=== PATIENT | female | born 1985 | race Caucasian/White ===

== ENCOUNTER 2022-11-03 23:03 | Outpatient (CLI) | payer SELFPAY | END 2022-11-03 23:59 | disposition critical access hospital (66) | LOC: EMS 23:03 | DX: R41.82 Altered mental status, unspecified (principal); R09.89 Other specified symptoms and signs involving the circulatory and respiratory systems; R45.6 Violent behavior; Z78.1 Physical restraint status | CPT/HCPCS: A0425; A0427 ==

== ENCOUNTER 2022-11-03 23:41 | Emergency (ER) | payer SELFPAY ==
--- NOTE | 2022-11-03 23:54 | ED Physician Documentation ---
History of Present Illness - Stated complaint Stated Complaint: AMS - Additonal information Additional information: Patient is 37-year-old female brought to the emergency department with chief complaint of altered mental status. Per EMS that she has been living with an elderly individual for the last 3 months. EMS was contacted when she was found minimally responsive by her landlady. EMS reported normal blood sugar. She received Narcan which did improve her mentation but she became somewhat agitated and was placed in restraints prior to arrival. She was found with a bottle of pills initially prescribed [facility] Mr. Xavi bautista. She is unable to tell me who this is. The bottle pills contain the following, five 3 mg tablets of ivermectin with expiration date 12/19/2021, 1 5-325 [place], five 300 mg gabapentin, as well as 2 capsules containing a white powder with no other identifier. She is altered at this time, orientated to person and place only. Denies substance abuse, intensive self-harm, pain or other acute issues but does state "I need to use the bathroom". Further history is limited by her altered mentation. Review of Systems Unable to obtain: AMS PD PAST MEDICAL HISTORY - Allergies Allergies/Adverse Reactions: Allergies Allergy/AdvReac Type Severity Reaction Status Date / Time morphine AdvReac Unknown Verified 11/04/22 01:19 PD ED PE NORMAL - Vitals Vital signs reviewed: Yes (WNL) - General General: Other (Patient alert and orientated to person and place only.) - HEENT HEENT: Atraumatic, PERRL, EOMI, Other (Conjunctival injections bilaterally) - Cardiac Cardiac: RRR - Respiratory Respiratory: No respiratory distress - Abdomen Abdomen: Normal bowel sounds, Non tender - Female Female : Deferred - Rectal Rectal: Deferred - Derm Derm: Normal color - Extremities Extremities: No deformity - Neuro Neuro: Alert and oriented X 3, 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 Relevant findings are: Sinus rhythm with rate 74 bpm. Left axis deviation. Normal MI, QRS intervals. Borderline QTc at 481. No ST segment elevations. Nonspecific ST and T wave abnormalities throughout. Significant motion artifact throughout.. - Labs Labs: Laboratory Tests 11/03/22 11/03/22 11/03/22 23:45 23:45 23:45 WBC 6.0 RBC 4.00 L Hgb 13.4 Hct 40.6 MCV 101.5 H MCH 33.5 H MCHC 33.0 RDW 12.8 Plt Count 247 MPV 8.8 Neut # (Auto) 2.5 Lymph # (Auto) 2.8 [place] # (Auto) 0.5 Eos # (Auto) 0.1 Baso # (Auto) 0.1 Absolute Nucleated RBC 0.00 Nucleated RBC % 0.0 PT INR Sodium 140 Potassium 3.4 L Chloride 97 L Carbon Dioxide 27 Anion Gap 16.0 H BUN 10 Creatinine 0.6 Estimated GFR (MDRD) 114 Glucose 99 Lactic Acid Calcium 8.9 Magnesium 2.2 Total Bilirubin 0.3 AST 54 H ALT 32 Alkaline Phosphatase 59 Total Creatine Kinase 205 Total Protein 8.2 Albumin 4.4 Globulin 3.8 Albumin/Globulin Ratio 1.2 Lipase 46 TSH 2.67 Urine Color Urine Clarity Urine pH Ur Specific [place] Urine Protein Urine Glucose (UA) Urine Ketones Urine Occult Blood Urine Nitrite Urine Bilirubin Urine Urobilinogen Ur Leukocyte Esterase Ur Microscopic Review Urine Culture Comments Urine HCG, Qual Salicylates < 6.0 Urine Opiates Screen Ur Oxycodone Screen Urine Methadone Screen Ur Propoxyphene Screen Acetaminophen < 10 L Ur Barbiturates Screen Ur Tricyclics Screen Ur Phencyclidine Scrn Ur Amphetamine Screen U Methamphetamines Scrn U Benzodiazepines Scrn Urine Cocaine Screen U Cannabinoids Screen Ethyl Alcohol 436.0 SARS-CoV-2 (PCR) 11/03/22 11/04/22 11/04/22 23:49 00:00 00:06 WBC RBC Hgb Hct MCV MCH MCHC RDW Plt Count MPV Neut # (Auto) Lymph # (Auto) [place] # (Auto) Eos # (Auto) Baso # (Auto) Absolute Nucleated RBC Nucleated RBC % PT 10.0 INR 0.9 Sodium Potassium Chloride Carbon Dioxide Anion Gap BUN Creatinine Estimated GFR (MDRD) Glucose Lactic Acid Calcium Magnesium Total Bilirubin AST ALT Alkaline Phosphatase Total Creatine Kinase Total Protein Albumin Globulin Albumin/Globulin Ratio Lipase TSH Urine Color YELLOW Urine Clarity CLEAR Urine pH 7.0 Ur Specific [place] <=1.005 Urine Protein NEGATIVE Urine Glucose (UA) NEGATIVE Urine Ketones NEGATIVE Urine Occult Blood NEGATIVE Urine Nitrite NEGATIVE Urine Bilirubin NEGATIVE Urine Urobilinogen 0.2 (NORMAL) Ur Leukocyte Esterase NEGATIVE Ur Microscopic Review NOT INDICATED Urine Culture Comments NOT INDICATED Urine HCG, Qual NEGATIVE Salicylates Urine Opiates Screen NEGATIVE Ur Oxycodone Screen NEGATIVE Urine Methadone Screen NEGATIVE Ur Propoxyphene Screen NEGATIVE Acetaminophen Ur Barbiturates Screen NEGATIVE Ur Tricyclics Screen NEGATIVE Ur Phencyclidine Scrn NEGATIVE Ur Amphetamine Screen NEGATIVE U Methamphetamines Scrn NEGATIVE U Benzodiazepines Scrn NEGATIVE Urine Cocaine Screen NEGATIVE U Cannabinoids Screen NEGATIVE Ethyl Alcohol SARS-CoV-2 (PCR) NOT DETECTED 11/04/22 00:06 WBC RBC Hgb Hct MCV MCH MCHC RDW Plt Count MPV Neut # (Auto) Lymph # (Auto) [place] # (Auto) Eos # (Auto) Baso # (Auto) Absolute Nucleated RBC Nucleated RBC % PT INR Sodium Potassium Chloride Carbon Dioxide Anion Gap BUN Creatinine Estimated GFR (MDRD) Glucose Lactic Acid 2.6 H Calcium Magnesium Total Bilirubin AST ALT Alkaline Phosphatase Total Creatine Kinase Total Protein Albumin Globulin Albumin/Globulin Ratio Lipase TSH Urine Color Urine Clarity Urine pH Ur Specific [place] Urine Protein Urine Glucose (UA) Urine Ketones Urine Occult Blood Urine Nitrite Urine Bilirubin Urine Urobilinogen Ur Leukocyte Esterase Ur Microscopic Review Urine Culture Comments Urine HCG, Qual Salicylates Urine Opiates Screen Ur Oxycodone Screen Urine Methadone Screen Ur Propoxyphene Screen Acetaminophen Ur Barbiturates Screen Ur Tricyclics Screen Ur Phencyclidine Scrn Ur Amphetamine Screen U Methamphetamines Scrn U Benzodiazepines Scrn Urine Cocaine Screen U Cannabinoids Screen Ethyl Alcohol SARS-CoV-2 (PCR) PD Medical Decision Making - ED course Complexity details: reviewed results, re-evaluated patient, considered differential ED course: Patient is 37-year-old female being brought into the emergency department via EMS with altered mentation. Patient demonstrates slurred speech, disorganized behavior on arrival to the emergency department most consistent with acute intoxication. Denied alcohol or illicit substance abuse. Was found with a pill bottle that did not have her name on it that was found to contain five 3 mg ivermectin, five 300 mg Gabapentin, 1 5-325 Garfield and 2 capsules containing an unidentified white powder. Patient's EKG is outlined above was negative for indications of acute cardiac ischemia or dysrhythmia. Labs were all generally within normal limits or nonactionable with the exception of a significantly elevated blood ethanol. She was given IV hydration in the emergency department and provided with a single dose of lorazepam for chemical calming. She was trialed out of restraints shortly after arrival to the emergency department. She did require repeated redirection by nursing staff. On reevaluation at approximately 0630 hrs. patient continued to demonstrate findings consistent with acute alcohol intoxication. She continued to deny the use of any alcohol or other illicit substance. At this time I will be signing her out to the oncoming physician, please see their documentation for further detail. Departure - Departure Disposition: 01 Home, Self Care Clinical Impression: Alcohol intoxication Qualifiers: Complication of substance-induced condition: with unspecified complication Qualified Code(s): F10.929 - Alcohol use, unspecified with intoxication, unspecified Condition: Stable Instructions: ED Alcohol Intoxication Comments: You were brought to the emergency department last night after having had too much alcohol. Drinking too much can be dangerous to yourself and potentially to others. Please consider reaching out to your primary care provider for help with your substance use. If at anytime you are having thoughts of hurting yourself or anyone else please call 911 or return to the emergency department. [facility] [address] Main The [facility] offers a monitored and safe setting for individuals withdrawing from alcohol and drugs, and counseling for individuals experiencing a mental health crisis. All services are provided in a 10-bed facility where intensive medical monitoring is required along with stabilization services. The goal of these services is to assess a clients mental health and substance use disorder related needs, and assist them in accessing the services they need to recover. Discharge Date/Time: 11/04/22 08:40
--- NOTE | 2022-11-03 23:59 | ED Physician Documentation ---
Restraint [id number] - Immediate Situation Face to Face Evaluation Date: 11/03/22 Face to Face Evaluation Time: 23:58 Restraint Classification: Violent, physical Restraint Type: Soft extremity - Patient's Reaction & Behaviors Safety: Non-compliant Verbal: Asking for information, Crying/Tearful Harm: Potential harm to self, Potential harm to others - Behavioral Condition Attitude: Indifferent Behavior: Withdrawn Orientation: Person, Place Mood: Labile, Anxious - Evaluation Review of Systems: Unable to perform comprehensive ROS secondary to altered mentation. Pertinent History/Illicit Drugs/Medications/Results: Patient denies use of illicit substances. Was found adjacent multiple prescription medications as well as to identified capsules containing white powder. Please see MDM for further information. - Plan Need to Continue or Terminate Violent or Chemical Restraint: Continued
[2022-11-04 00:01] LABS: BASOPHILS # (AUTO) 0.1 10^3/uL (0.0-0.1); BASOPHILS % (AUTO) 0.8 %; EOSINOPHILS # (AUTO) 0.1 10^3/uL (0.0-0.7); EOSINOPHILS % (AUTO) 2.2 %; HCT - HEMATOCRIT 40.6 % (37.0-47.0); HGB - HEMOGLOBIN 13.4 g/dL (12.0-16.0); LYMPHOCYTES # (AUTO) 2.8 10^3/uL (1.5-3.5); LYMPHOCYTES % (AUTO) 47.5 %; MEAN CORPUSCULAR HEMOGLOBIN 33.5 pg (27.0-31.0); MEAN CORPUSCULAR VOLUME 101.5 fL (81.0-99.0); MEAN PLATELET VOLUME 8.8 fL (7.9-10.8); MONOCYTES # (AUTO) 0.5 10^3/uL (0.0-1.0); NEUTROPHILS # (AUTO) 2.5 10^3/uL (1.5-6.6); NEUTROPHILS % (AUTO) 41.3 %; PLT - PLATELET COUNT 247 10^3/uL (130-450); RED CELL DISTRIBUTION WIDTH 12.8 % (12.0-15.0)
[2022-11-04 00:11] LABS: MUDS CUTOFF CONCENTRATIONS CUTOFF CONC BELOW:
[2022-11-04 00:17] LABS: ACETAMINOPHEN < 10 ug/mL (10-30); ALBUMIN 4.4 g/dL (3.2-5.5); ALBUMIN/GLOBULIN RATIO 1.2 (1.0-2.2); ALKALINE PHOSPHATASE 59 IU/L (42-121); ALT ALANINE AMINOTRANSFERASE 32 IU/L (10-60); AST ASPARTATE AMINOTRANSFERASE 54 IU/L (10-42); BILIRUBIN,TOTAL 0.3 mg/dL (0.2-1.0); BUN - BLOOD UREA NITROGEN 10 mg/dL (6-20); CALCIUM 8.9 mg/dL (8.5-10.3); CARBON DIOXIDE - CO2 27 mmol/L (21-32); CHLORIDE 97 mmol/L (101-111); CK- CREATINE KINASE 205 IU/L (22-269); CREATININE 0.6 mg/dL (0.4-1.0); GFR - MDRD 114 (>89); GLUCOSE 99 mg/dL (70-100); LIPASE 46 U/L (22-51); MAGNESIUM 2.2 mg/dL (1.7-2.8); POTASSIUM 3.4 mmol/L (3.5-5.0); SALICYLATE < 6.0 mg/dL; SODIUM 140 mmol/L (135-145); TOTAL PROTEIN 8.2 g/dL (6.7-8.2)
[2022-11-04 00:19] LABS: BILIRUBIN,URINE NEGATIVE (NEGATIVE); GLUCOSE, URINE (UA) NEGATIVE (NEGATIVE); KETONES,URINE (UA) NEGATIVE (NEGATIVE); LEUKOCYTE ESTERASE, URINE NEGATIVE (NEGATIVE); NITRITE,URINE NEGATIVE (NEGATIVE); OCCULT BLOOD,URINE NEGATIVE (NEGATIVE); PROTEIN,URINE NEGATIVE (NEGATIVE); UROBILINOGEN,URINE 0.2 (NORMAL) E.U./dL (NORMAL)
[2022-11-04 00:21] LABS: INR 0.9 (0.8-1.2)
[2022-11-04 00:21] LABS: CLARITY,URINE CLEAR (CLEAR); HCG UR QUAL NEGATIVE
[2022-11-04] MEDS ORDERED: LORazepam 2 MG/ML VIAL IVP STA (00:24)
[2022-11-04 00:30] LABS: AMPHETAMINE SCREEN,URINE NEGATIVE (NEGATIVE); BARBITURATE SCREEN,UR NEGATIVE (NEGATIVE); BENZODIAZEPINES SCREEN, URINE NEGATIVE (NEGATIVE); COCAINE SCREEN URINE NEGATIVE (NEGATIVE); METHADONE SCREEN, URINE NEGATIVE (NEGATIVE); METHAMPHETAMINES SCREEN, URINE NEGATIVE (NEGATIVE); OPIATE SCREEN, URINE NEGATIVE (NEGATIVE); OXYCODONE SCREEN, URINE NEGATIVE (NEGATIVE); PROPOXYPHENE SCREEN, URINE NEGATIVE (NEGATIVE); THC CANNABINOID SCREEN, URINE NEGATIVE (NEGATIVE); TRICYCLIC ANTIDEPRESSANT,URINE NEGATIVE (NEGATIVE)
[2022-11-04] MEDS ORDERED: SODIUM CHLORIDE 0.9% 1,000 ML IV STA (00:44)
[2022-11-04] MEDS ORDERED: THIAMINE INJ 100 MG in SODIUM CHLORIDE 0.9% 50 ML IV STA (01:05)
[2022-11-04] MEDS ORDERED: FOLIC ACID INJ 1 MG in SODIUM CHLORIDE 0.9% 1,000 ML IV STA (01:05)
[2022-11-04] MEDS ORDERED: FOLIC ACID 5 MG/1 ML 10ML MDV ONE (01:25)
[2022-11-04] MEDS ORDERED: THIAMINE 100 MG/1 ML 2 ML MDV ONE (01:25)
--- NOTE | 2022-11-04 07:37 | ED Physician Documentation ---
ED Addendum - Addendum Addendum: 11/04/22 07:35 Patient signed out to me by Dr. Booker at shift change. Patient is wanting to go home. When asked what happened yesterday she states that she drinks too much and has occasionally done this but never to this extent. She states that she is coping with going through a divorce. She denies that she was trying to hurt herself. She denies doing anything about the pills that she was found with and is unsure why she would have had such a pill bottle with her. The name on the pill bottle matches with her father.She denies that she took any pills or again that she was trying to harm herself. She denies wanting any resources for substance abuse and denies that she drinks daily.She plans to reach out to her family for additional support. She is calling her friend and family for a ride home. She is speaking clearly, no slurring. She is ambulating without assistance. Clinically appears appropriate for discharge. Departure - Departure Disposition: 01 Home, Self Care Clinical Impression: Alcohol intoxication Condition: Stable Instructions: ED Alcohol Intoxication Comments: You were brought to the emergency department last night after having had too much alcohol. Drinking too much can be dangerous to yourself and potentially to others. Please consider reaching out to your primary care provider for help with your substance use. If at anytime you are having thoughts of hurting yourself or anyone else please call 911 or return to the emergency department. [facility] [address] [place] [address] Main The [facility] offers a monitored and safe setting for individuals withdrawing from alcohol and drugs, and counseling for individuals experiencing a mental health crisis. All services are provided in a 10-bed facility where intensive medical monitoring is required along with stabilization services. The goal of these services is to assess a clients mental health and substance use disorder related needs, and assist them in accessing the services they need to recover. Discharge Date/Time: 11/04/22 08:40
[2022-11-04 08:04] VITALS: BP 108/76
== END 2022-11-04 08:40 | disposition home or self-care (01) ==
LOC: ED 23:41
DX: F10.129 Alcohol abuse with intoxication, unspecified (principal); Y90.8 Blood alcohol level of 240 mg/100 ml or more; Z20.822 Contact with and (suspected) exposure to COVID-19
CPT/HCPCS: 36415; 80053; 80306; 80307; 80320; 80329; 81003; 81025; 82550; 83605; 83690; 83735; 84443; 85025; 85610; 87635; 93005; 96365; 96366; 96368; 96375; 99284; 99285; J2060; J3411; J7040; 81001; 87086